=== PATIENT | female | born 1935 | race Caucasian/White ===

== ENCOUNTER 2018-02-22 10:08 | Inpatient (IN) ==
[2018-02-22 10:56] LABS: Immature Granulocytes % 0.4 %; Immature Granulocytes Absolute 0.03 #; NRBC # 0.05 10*3/uL
[2018-02-22 11:01] LABS: Basophils % 0.5 % (0.0-0.8); Eosinophils % 0.4 % (0.00-10.9); Hematocrit 23.2 VOL% (35.7-47.0); Lymphocytes # 1.6 10*3/uL (1.4-4.0); Lymphocytes % 20.9 % (21.3-54.2); Mean Corpuscular HGB Conc 34.5 GM/DL (32-36); Mean Corpuscular Hemoglobin 35 PG (27-34); Mean Corpuscular Volume 100.9 FL (87-102); Mean Platelet Volume 11.7 FL (9.6-12.0); Monocytes # 0.7 10*3/uL (0.11-0.8); Monocytes % 8.9 % (1.7-12.7); Neutrophils # 5.4 10*3/uL (1.4-7.4); Neutrophils % 68.9 % (38.7-73.9); Platelet Count 145 T/CUMM (130-400); Red Cell Distribution Width 15.8 % (9.3-17.3); White Blood Count 7.8 T/CUMM (4-12)
[2018-02-22 11:10] LABS: INR 1.1; PT Patient Result 11.4 SECS; Partial Thromboplastin Time 28.9 SECS (0-40)
[2018-02-22 11:24] LABS: Alanine Aminotransferase 103 U/L (13-56); Albumin 3.3 G/DL (3.4-5.0); Alkaline Phosphatase 137 U/L (45-117); Aspartate Amino Transferase 61 U/L (0-37); Blood Urea Nitrogen 18 MG/DL (7-18); Calcium 8.8 MG/DL (8.5-10.1); Glucose 99 MG/DL (74-106); Osmolality,Calculated 261.8 MOS/KG (273-304); Potassium 4.6 MMOL/L (3.5-5.1); Sodium 130 MMOL/L (136-145); Total Protein 7.4 G/DL (6.4-8.3); Troponin I Only < 0.015 NG/ML (0.00-0.045)
[2018-02-22] MEDS ORDERED: FUROSEMIDE 40 MG/4 ML VIAL IV STA (11:54)
[2018-02-22] MEDS: DILTIAZEM INJ 100 MG in SODIUM CHLORIDE 0.9% 100 ML IV SCH (12:12)
[2018-02-22] MEDS ORDERED: ACETAMINOPHEN 325 MG TABLET PO PRN (12:59)
[2018-02-22] MEDS ORDERED: ONDANSETRON 4 MG/2 ML VIAL IV PRN (12:59)
[2018-02-22] MEDS ORDERED: METOPROLOL SUCCINATE XL 25 MG TABLET PO SCH (13:00)
[2018-02-22] MEDS ORDERED: ASPIRIN EC 325 MG TABLET PO SCH (13:30)
[2018-02-22] MEDS ORDERED: SODIUM CHLORIDE 0.9% 1,000 ML IV PRN (13:59)
[2018-02-22] MEDS: GABAPENTIN 600 MG TABLET PO SCH ×2 (15:58→20:49)
[2018-02-22] MEDS: hydrALAZINE 25 MG TABLET PO SCH ×2 (15:58→20:48)
[2018-02-22] MEDS: ASCORBIC ACID 500 MG TABLET PO SCH (15:59)
[2018-02-22] MEDS: ASPIRIN EC 81 MG TABLET PO SCH (16:53)
[2018-02-22] MEDS: FUROSEMIDE 20 MG/2 ML VIAL IV SCH (18:28)
[2018-02-22 19:59] LABS: Hematocrit 26.6 VOL% (35.7-47.0); Hemoglobin 9.1 GM/DL (12.0-16.0)
[2018-02-22] MEDS: METOPROLOL SUCCINATE XL 25 MG TABLET PO SCH (20:48)
[2018-02-22] MEDS: MAGNESIUM OXIDE 400 MG TABLET PO SCH (20:48)
[2018-02-22] MEDS: CIPROFLOXACIN 250 MG TABLET PO SCH (20:48)
[2018-02-22] MEDS: GABAPENTIN 300 MG CAPSULE PO SCH (20:56)
[2018-02-23] MEDS: DILTIAZEM INJ 100 MG in SODIUM CHLORIDE 0.9% 100 ML IV SCH ×2 (00:51→13:13)
[2018-02-23 06:01] LABS: Basophils # 0.1 10*3/uL (0.0-0.2); Basophils % 0.7 % (0.0-0.8); Eosinophils # 0.2 10*3/uL (0.0-0.87); Eosinophils % 2.2 % (0.00-10.9); Hematocrit 26.8 VOL% (35.7-47.0); Hemoglobin 9.3 GM/DL (12.0-16.0); Immature Granulocytes % 0.4 %; Immature Granulocytes Absolute 0.03 #; Lymphocytes # 2.1 10*3/uL (1.4-4.0); Lymphocytes % 30.9 % (21.3-54.2); Mean Corpuscular HGB Conc 34.7 GM/DL (32-36); Mean Corpuscular Hemoglobin 34 PG (27-34); Mean Corpuscular Volume 97.8 FL (87-102); Mean Platelet Volume 11.8 FL (9.6-12.0); Monocytes # 0.7 10*3/uL (0.11-0.8); Monocytes % 10.5 % (1.7-12.7); NRBC # 0.03 10*3/uL; Neutrophils # 3.7 10*3/uL (1.4-7.4); Neutrophils % 55.3 % (38.7-73.9); Platelet Count 112 T/CUMM (130-400); Red Blood Count 2.74 MC/CUMM (3.8-5.5); Red Cell Distribution Width 15.6 % (9.3-17.3); White Blood Count 6.7 T/CUMM (4-12)
[2018-02-23 06:26] LABS: % Iron Saturation 23.4 % (18-50); Ferritin 217.7 ng/ml (8-252)
[2018-02-23 06:34] LABS: Albumin 3.1 G/DL (3.4-5.0); Bilirubin,Direct 0.27 MG/DL (0.0-0.20); Bilirubin,Indirect 0.9 MG/DL (0.0-1.0); Bilirubin,Total 1.2 MG/DL (0.2-1.0); Total Protein 6.9 G/DL (6.4-8.3)
[2018-02-23 06:46] LABS: Folate > 24.0 NG/ML (5.4-24.0); Vitamin B12 > 2000 PG/ML (211-911)
[2018-02-23 07:02] LABS: Calcium 8.5 MG/DL (8.5-10.1); Osmolality,Calculated 270.1 MOS/KG (273-304); Potassium 3.7 MMOL/L (3.5-5.1)
[2018-02-23] MEDS: FUROSEMIDE 20 MG/2 ML VIAL IV SCH ×2 (09:09→15:08)
[2018-02-23] MEDS: GABAPENTIN 600 MG TABLET PO SCH ×3 (09:09→21:27)
[2018-02-23] MEDS: MAGNESIUM OXIDE 400 MG TABLET PO SCH ×2 (09:09→21:26)
[2018-02-23] MEDS: hydrALAZINE 25 MG TABLET PO SCH ×3 (09:09→21:26)
[2018-02-23] MEDS: CIPROFLOXACIN 250 MG TABLET PO SCH ×2 (09:09→21:27)
[2018-02-23] MEDS: ASCORBIC ACID 500 MG TABLET PO SCH ×2 (09:09→09:33)
[2018-02-23] MEDS: ASPIRIN EC 81 MG TABLET PO SCH (09:09)
[2018-02-23] MEDS: PANTOPRAZOLE 40 MG TABLET PO SCH (09:09)
[2018-02-23] MEDS: METOPROLOL SUCCINATE XL 25 MG TABLET PO SCH ×2 (09:10→21:26)
[2018-02-23] MEDS: GABAPENTIN 300 MG CAPSULE PO SCH ×2 (09:33→21:27)
[2018-02-24 08:51] LABS: Basophils % 0.4 % (0.0-0.8); Eosinophils # 0.2 10*3/uL (0.0-0.87); Eosinophils % 2.3 % (0.00-10.9); Hematocrit 28.5 VOL% (35.7-47.0); Hemoglobin 10.1 GM/DL (12.0-16.0); Immature Granulocytes % 0.3 %; Immature Granulocytes Absolute 0.02 #; Lymphocytes % 28.9 % (21.3-54.2); Mean Corpuscular HGB Conc 35.4 GM/DL (32-36); Mean Corpuscular Hemoglobin 35 PG (27-34); Mean Corpuscular Volume 97.9 FL (87-102); Mean Platelet Volume 11.7 FL (9.6-12.0); Monocytes # 0.8 10*3/uL (0.11-0.8); Monocytes % 10.8 % (1.7-12.7); Neutrophils % 57.3 % (38.7-73.9); Platelet Count 129 T/CUMM (130-400); Red Blood Count 2.91 MC/CUMM (3.8-5.5); Red Cell Distribution Width 15.4 % (9.3-17.3)
[2018-02-24 09:06] LABS: Calcium 8.3 MG/DL (8.5-10.1); Osmolality,Calculated 264.5 MOS/KG (273-304); Potassium 3.4 MMOL/L (3.5-5.1)
[2018-02-24 09:08] VITALS: BP 116/68
[2018-02-24] MEDS: ASCORBIC ACID 500 MG TABLET PO SCH ×2 (09:18→09:38)
[2018-02-24] MEDS: FUROSEMIDE 20 MG/2 ML VIAL IV SCH (09:18)
[2018-02-24] MEDS: MAGNESIUM OXIDE 400 MG TABLET PO SCH (09:19)
[2018-02-24] MEDS: METOPROLOL SUCCINATE XL 25 MG TABLET PO SCH (09:19)
[2018-02-24] MEDS: hydrALAZINE 25 MG TABLET PO SCH (09:19)
[2018-02-24] MEDS: PANTOPRAZOLE 40 MG TABLET PO SCH (09:19)
[2018-02-24] MEDS: CIPROFLOXACIN 250 MG TABLET PO SCH (09:19)
[2018-02-24] MEDS: ASPIRIN EC 81 MG TABLET PO SCH (09:19)
[2018-02-24] MEDS: GABAPENTIN 600 MG TABLET PO SCH (09:19)
[2018-02-24] MEDS: GABAPENTIN 300 MG CAPSULE PO SCH (09:38)
[2018-02-24] MEDS ORDERED: POTASSIUM CHLORIDE 20 MEQ TABLET PO ONE (10:22)
== END 2018-02-24 11:51 | disposition home or self-care (01) | DRG 308 ==
LOC: N.ED 10:08 → N.EDINP 13:18 → SUATTDRO 13:18 → N.TELES 14:32
PROVIDERS: ADMIT Family Medicine

== ENCOUNTER 2019-07-16 20:12 | Inpatient (IN) ==
[2019-07-16] MEDS ORDERED: SODIUM CHLORIDE 0.9% 500 ML IV STA (20:34)
[2019-07-16] MEDS ORDERED: ALBUTEROL/IPRATROPIUM 3 ML NEB RESP TX STA (20:34)
[2019-07-16 20:42] LABS: Basophils % 0.2 % (0.0-0.8); Eosinophils % 0.1 % (0.00-10.9); Hematocrit 31.3 VOL% (35.7-47.0); Hemoglobin 10.2 GM/DL (12.0-16.0); Immature Granulocytes % 2.2 %; Immature Granulocytes Absolute 0.39 #; Lymphocytes # 1.2 10*3/uL (1.4-4.0); Lymphocytes % 6.5 % (21.3-54.2); Mean Corpuscular HGB Conc 32.6 GM/DL (32-36); Mean Corpuscular Volume 96.6 FL (87-102); Mean Platelet Volume 10.6 FL (9.6-12.0); Monocytes % 7.5 % (1.7-12.7); NRBC # 0.03 10*3/uL; Neutrophils % 83.5 % (38.7-73.9); Platelet Count 235 T/CUMM (130-400); Red Blood Count 3.24 MC/CUMM (3.8-5.5); Red Cell Distribution Width 15.1 % (9.3-17.3); White Blood Count 17.7 T/CUMM (4-12)
[2019-07-16 20:49] LABS: INR 0.9; PT Patient Result 9.4 SECS (9.6-12.2)
[2019-07-16 21:13] LABS: Alanine Aminotransferase 14 U/L (13-56); Albumin 2.1 G/DL (3.4-5.0); Alkaline Phosphatase 82 U/L (45-117); Amylase 31 U/L (25-115); Aspartate Amino Transferase 39 U/L (0-37); Bilirubin,Total < 0.39 MG/DL (0.2-1.0); Blood Urea Nitrogen 74 MG/DL (7-18); Estimated Glom Filtration Rate 11 ML/MIN; Glucose 100 MG/DL (74-106); Osmolality,Calculated 281.8 MOS/KG (273-304); Total Protein 6.8 G/DL (6.4-8.3); Troponin I 0.025 NG/ML (0.00-0.045)
[2019-07-16 21:23] LABS: Apearance,Urine CLOUDY (Clear); Bilirubin,Urine Negative (Negative); Blood, Urine Negative (Negative); Glucose,Urine (UA) Negative (Negative); Granular Casts,Urine 4 /LPF (0-1); Hyaline Casts,Urine 4 /LPF (0-3); Ketones,Urine Negative (Negative); Nitrite,Urine Negative (Negative); Protein,Urine 100 MG/DL; RBC,Urine 2 /HPF (0-4); Renal Epithelial Cells,Urine Occasional /HPF (<1); Squamous Epithelial Cell,Urine Occasional /HPF (0-10); Urine Color Yellow (Yellow); Urine Specific Gravity 1.015 (1.001-1.035); Urine Urobilinogen < 2.0 EU/DL (0.2-1.0); WBC,Urine 24 /HPF (0-6)
[2019-07-16] MEDS ORDERED: VANCOMYCIN INJ 1,000 MG in SODIUM CHLORIDE 0.9% 250 ML IV STA (21:37)
[2019-07-16] MEDS ORDERED: SODIUM CHLORIDE 0.9% 1,000 ML IV STA (21:37)
[2019-07-17] MEDS ORDERED: ONDANSETRON 4 MG/2 ML VIAL IV PRN (00:52)
[2019-07-17] MEDS ORDERED: SKIN HEALING OINT (AQUAPHOR) 50 GM TUBE TOP PRN (01:03)
[2019-07-17] MEDS: SODIUM CHLORIDE 0.9% 1,000 ML IV SCH ×2 (01:49→20:19)
[2019-07-17] MEDS: cefTRIAXone 1,000 MG in SYRINGE 1 EACH IV SCH (01:50)
[2019-07-17] MEDS: ENOXAPARIN 30 MG/0.3 ML SYRINGE SUBCUT SCH (01:50)
[2019-07-17 07:22] LABS: Basophils % 0.1 % (0.0-0.8); Eosinophils % 0.1 % (0.00-10.9); Hematocrit 25.8 VOL% (35.7-47.0); Hemoglobin 8.3 GM/DL (12.0-16.0); Immature Granulocytes % 2.1 %; Immature Granulocytes Absolute 0.32 #; Lymphocytes # 0.9 10*3/uL (1.4-4.0); Mean Corpuscular HGB Conc 32.2 GM/DL (32-36); Mean Corpuscular Volume 98.5 FL (87-102); Mean Platelet Volume 10.8 FL (9.6-12.0); Monocytes % 8.9 % (1.7-12.7); Neutrophils % 82.8 % (38.7-73.9); Red Blood Count 2.62 MC/CUMM (3.8-5.5); Red Cell Distribution Width 15.2 % (9.3-17.3); White Blood Count 15.1 T/CUMM (4-12)
[2019-07-17 07:33] LABS: Platelet Count 177 T/CUMM (130-400)
[2019-07-17 07:45] LABS: Band Neutrophils 4 % (0-10); Hypochromasia 1+; Lymphocytes 2 % (20-55); Ovalocytes Slight; Platelet Estimate Adequate; Segmented Neutrophils 89 % (50-85); Total Cells Counted 100
[2019-07-17] MEDS: PANTOPRAZOLE 40 MG TABLET PO SCH (08:50)
[2019-07-17 09:03] LABS: Alanine Aminotransferase 11 U/L (13-56); Albumin 1.9 G/DL (3.4-5.0); Alkaline Phosphatase 82 U/L (45-117); Aspartate Amino Transferase 26 U/L (0-37); Bilirubin,Total < 0.39 MG/DL (0.2-1.0); Blood Urea Nitrogen 71 MG/DL (7-18); Calcium 7.6 MG/DL (8.5-10.1); Estimated Glom Filtration Rate 11 ML/MIN; Glucose 90 MG/DL (74-106); Osmolality,Calculated 288.2 MOS/KG (273-304); Total Protein 6.2 G/DL (6.4-8.3)
[2019-07-17] MEDS ORDERED: Mirabegron [Myrbetriq] 25 MG PO SCH (12:15)
[2019-07-17] MEDS: ESCITALOPRAM 10 MG TABLET PO SCH (12:56)
[2019-07-17] MEDS: GABAPENTIN 300 MG CAPSULE PO SCH ×2 (12:56→20:19)
[2019-07-17] MEDS: MAGNESIUM OXIDE 400 MG TABLET PO SCH ×2 (12:57→20:19)
[2019-07-17] MEDS: ASPIRIN EC 81 MG TABLET PO SCH (12:57)
[2019-07-17] MEDS: METOPROLOL SUCCINATE XL 25 MG TABLET PO SCH (12:59)
[2019-07-17] MEDS: POTASSIUM CHLORIDE 20 MEQ TABLET PO PRN ×4 (12:59→20:19)
[2019-07-17] MEDS: DIGOXIN 0.125 MG TABLET PO SCH (13:01)
[2019-07-17] MEDS: DONEPEZIL 5 MG TABLET PO SCH (20:19)
[2019-07-18] MEDS: cefTRIAXone 1,000 MG in SYRINGE 1 EACH IV SCH (01:04)
[2019-07-18 07:41] LABS: Calcium 8.1 MG/DL (8.5-10.1); Osmolality,Calculated 291.8 MOS/KG (273-304)
[2019-07-18] MEDS: ENOXAPARIN 30 MG/0.3 ML SYRINGE SUBCUT SCH (10:14)
[2019-07-18] MEDS: ESCITALOPRAM 10 MG TABLET PO SCH (10:15)
[2019-07-18] MEDS: GABAPENTIN 300 MG CAPSULE PO SCH ×2 (10:15→21:53)
[2019-07-18] MEDS: DIGOXIN 0.125 MG TABLET PO SCH (10:15)
[2019-07-18] MEDS: METOPROLOL SUCCINATE XL 25 MG TABLET PO SCH (10:15)
[2019-07-18] MEDS: MAGNESIUM OXIDE 400 MG TABLET PO SCH ×2 (10:16→21:53)
[2019-07-18] MEDS: ASPIRIN EC 81 MG TABLET PO SCH (10:16)
[2019-07-18] MEDS: PANTOPRAZOLE 40 MG TABLET PO SCH (10:16)
[2019-07-18] MEDS: SODIUM CHLORIDE 0.9% 1,000 ML IV SCH (18:11)
[2019-07-18] MEDS: DONEPEZIL 5 MG TABLET PO SCH (21:53)
[2019-07-18] MEDS: OXYBUTYNIN 5 MG TABLET PO SCH (21:53)
[2019-07-18] MEDS: DESITIN 4OZ/NYSTATIN 15 GRAM MIXTURE PASTE TOP SCH (21:54)
[2019-07-19] MEDS: cefTRIAXone 1,000 MG in SYRINGE 1 EACH IV SCH (01:10)
[2019-07-19 05:39] LABS: Basophils % 0.2 % (0.0-0.8); Eosinophils # 0.1 10*3/uL (0.0-0.87); Eosinophils % 0.4 % (0.00-10.9); Hematocrit 27.5 VOL% (35.7-47.0); Hemoglobin 8.8 GM/DL (12.0-16.0); Immature Granulocytes % 1.9 %; Immature Granulocytes Absolute 0.45 #; Lymphocytes # 1.1 10*3/uL (1.4-4.0); Lymphocytes % 4.7 % (21.3-54.2); Mean Corpuscular Volume 98.6 FL (87-102); Mean Platelet Volume 11.2 FL (9.6-12.0); Monocytes % 6.4 % (1.7-12.7); Neutrophils % 86.4 % (38.7-73.9); Platelet Count 203 T/CUMM (130-400); Red Blood Count 2.79 MC/CUMM (3.8-5.5); Red Cell Distribution Width 15.7 % (9.3-17.3); White Blood Count 24.1 T/CUMM (4-12)
[2019-07-19 06:03] LABS: Band Neutrophils 7 % (0-10); Lymphocytes 5 % (20-55); Segmented Neutrophils 84 % (50-85); Total Cells Counted 100
[2019-07-19 06:04] LABS: Hypochromasia 1+; Microcytosis Slight; Platelet Estimate Normal
[2019-07-19 06:06] LABS: Calcium 7.9 MG/DL (8.5-10.1); Osmolality,Calculated 298.5 MOS/KG (273-304)
[2019-07-19] MEDS: GABAPENTIN 300 MG CAPSULE PO SCH ×2 (08:42→20:10)
[2019-07-19] MEDS: METOPROLOL SUCCINATE XL 25 MG TABLET PO SCH (08:42)
[2019-07-19] MEDS: ASPIRIN EC 81 MG TABLET PO SCH (08:42)
[2019-07-19] MEDS: ESCITALOPRAM 10 MG TABLET PO SCH (08:42)
[2019-07-19] MEDS: MAGNESIUM OXIDE 400 MG TABLET PO SCH ×2 (08:43→20:10)
[2019-07-19] MEDS: ENOXAPARIN 30 MG/0.3 ML SYRINGE SUBCUT SCH (08:43)
[2019-07-19] MEDS: PANTOPRAZOLE 40 MG TABLET PO SCH (08:43)
[2019-07-19] MEDS: OXYBUTYNIN 5 MG TABLET PO SCH ×2 (08:43→20:10)
[2019-07-19] MEDS: DIGOXIN 0.125 MG TABLET PO SCH (08:53)
[2019-07-19] MEDS: DESITIN 4OZ/NYSTATIN 15 GRAM MIXTURE PASTE TOP SCH ×2 (09:52→20:10)
[2019-07-19] MEDS: POTASSIUM CHLORIDE 20 MEQ TABLET PO PRN ×4 (09:57→15:13)
[2019-07-19] MEDS: SODIUM CHLORIDE 0.9% 1,000 ML IV SCH ×2 (11:40→12:28)
[2019-07-19] MEDS: FLUCONAZOLE INJ 100 MG in IV BAG 1 EACH IV SCH (11:40)
[2019-07-19] MEDS: ERTAPENEM 1,000 MG in SODIUM CHLORIDE 0.9% 100 ML IV SCH (15:13)
[2019-07-19] MEDS: ACETAMINOPHEN 325 MG TABLET PO PRN (15:13)
[2019-07-20 06:10] LABS: Basophils # 0.1 10*3/uL (0.0-0.2); Basophils % 0.2 % (0.0-0.8); Eosinophils # 0.1 10*3/uL (0.0-0.87); Eosinophils % 0.5 % (0.00-10.9); Hematocrit 28.6 VOL% (35.7-47.0); Hemoglobin 9.3 GM/DL (12.0-16.0); Immature Granulocytes % 1.2 %; Immature Granulocytes Absolute 0.37 #; Lymphocytes # 1.3 10*3/uL (1.4-4.0); Lymphocytes % 4.4 % (21.3-54.2); Mean Corpuscular HGB Conc 32.5 GM/DL (32-36); Mean Corpuscular Volume 97.6 FL (87-102); Mean Platelet Volume 11.2 FL (9.6-12.0); Monocytes % 4.9 % (1.7-12.7); NRBC # 0.02 10*3/uL; Neutrophils % 88.8 % (38.7-73.9); Platelet Count 237 T/CUMM (130-400); Red Blood Count 2.93 MC/CUMM (3.8-5.5); Red Cell Distribution Width 15.8 % (9.3-17.3)
[2019-07-20 06:33] LABS: Calcium 7.9 MG/DL (8.5-10.1); Osmolality,Calculated 301.1 MOS/KG (273-304)
[2019-07-20 06:44] LABS: Band Neutrophils 4 % (0-10); Eosinophils 1 % (0-10); Lymphocytes 4 % (20-55); Segmented Neutrophils 90 % (50-85); Total Cells Counted 100
[2019-07-20 06:45] LABS: Anisocytosis 1+; Ovalocytes 1+; Platelet Estimate Normal
[2019-07-20] MEDS: POTASSIUM CHLORIDE 20 MEQ TABLET PO PRN (08:27)
[2019-07-20] MEDS: MAGNESIUM OXIDE 400 MG TABLET PO SCH ×2 (08:28→21:25)
[2019-07-20] MEDS: OXYBUTYNIN 5 MG TABLET PO SCH ×2 (08:28→21:25)
[2019-07-20] MEDS: GABAPENTIN 300 MG CAPSULE PO SCH ×2 (08:28→21:25)
[2019-07-20] MEDS: DESITIN 4OZ/NYSTATIN 15 GRAM MIXTURE PASTE TOP SCH ×2 (08:28→21:25)
[2019-07-20] MEDS: DIGOXIN 0.125 MG TABLET PO SCH (08:28)
[2019-07-20] MEDS: ASPIRIN EC 81 MG TABLET PO SCH (08:28)
[2019-07-20] MEDS: ENOXAPARIN 30 MG/0.3 ML SYRINGE SUBCUT SCH (08:28)
[2019-07-20] MEDS: SODIUM CHLORIDE 0.9% 1,000 ML IV SCH (08:29)
[2019-07-20] MEDS: METOPROLOL SUCCINATE XL 25 MG TABLET PO SCH (08:30)
[2019-07-20] MEDS: PANTOPRAZOLE 40 MG TABLET PO SCH (08:30)
[2019-07-20] MEDS: FLUCONAZOLE INJ 100 MG in IV BAG 1 EACH IV SCH (10:21)
[2019-07-20] MEDS ORDERED: PROPOFOL 200 MG/20 ML VIAL IV ONE (15:22)
[2019-07-20] MEDS ORDERED: DEXAMETHASONE 4 MG/1 ML VIAL ONE ×2 (15:23)
[2019-07-20] MEDS ORDERED: PHENYLEPHRINE DRIP 20 MG/250 ML PREMIX IV ONE (15:23)
[2019-07-20] MEDS ORDERED: SEVOFLURANE 1 UNIT/15 MINUTE INH ONE (15:23)
[2019-07-20] MEDS ORDERED: LIDOCAINE 2% 5 ML VIAL ONE (15:23)
[2019-07-20] MEDS ORDERED: PHENYLEPHRINE 1 MG/10 ML SYRINGE IV ONE (15:23)
[2019-07-20] MEDS ORDERED: ONDANSETRON 4 MG/2 ML VIAL ONE (15:23)
[2019-07-20] MEDS ORDERED: TAMSULOSIN 0.4 MG CAPSULE PO PRN (15:38)
[2019-07-20] MEDS: ERTAPENEM 1,000 MG in SODIUM CHLORIDE 0.9% 100 ML IV SCH (16:08)
[2019-07-21 05:51] LABS: Basophils # 0.1 10*3/uL (0.0-0.2); Basophils % 0.2 % (0.0-0.8); Hematocrit 27.8 VOL% (35.7-47.0); Hemoglobin 8.7 GM/DL (12.0-16.0); Immature Granulocytes % 1.7 %; Immature Granulocytes Absolute 0.49 #; Lymphocytes # 1.4 10*3/uL (1.4-4.0); Lymphocytes % 4.9 % (21.3-54.2); Mean Corpuscular HGB Conc 31.3 GM/DL (32-36); Mean Corpuscular Volume 99.3 FL (87-102); Mean Platelet Volume 11.1 FL (9.6-12.0); Monocytes % 2.5 % (1.7-12.7); Neutrophils % 90.7 % (38.7-73.9); Platelet Count 233 T/CUMM (130-400); Red Cell Distribution Width 16.1 % (9.3-17.3)
[2019-07-21] MEDS: SODIUM CHLORIDE 0.9% 1,000 ML IV SCH ×2 (05:51→22:17)
[2019-07-21 06:17] LABS: Band Neutrophils 2 % (0-10); Segmented Neutrophils 97 % (50-85); Total Cells Counted 100
[2019-07-21 06:19] LABS: Anisocytosis 1+; Platelet Estimate Normal
[2019-07-21 06:29] LABS: Calcium 7.6 MG/DL (8.5-10.1); Osmolality,Calculated 307.7 MOS/KG (273-304)
[2019-07-21] MEDS: DIGOXIN 0.125 MG TABLET PO SCH ×2 (07:55→08:01)
[2019-07-21] MEDS: PANTOPRAZOLE 40 MG TABLET PO SCH ×2 (07:55→08:01)
[2019-07-21] MEDS: ASPIRIN EC 81 MG TABLET PO SCH ×2 (07:55→08:00)
[2019-07-21] MEDS: MAGNESIUM OXIDE 400 MG TABLET PO SCH ×3 (07:56→20:24)
[2019-07-21] MEDS: GABAPENTIN 300 MG CAPSULE PO SCH ×3 (07:56→20:23)
[2019-07-21] MEDS: OXYBUTYNIN 5 MG TABLET PO SCH ×3 (07:56→20:24)
[2019-07-21] MEDS: METOPROLOL SUCCINATE XL 25 MG TABLET PO SCH ×2 (07:56→08:02)
[2019-07-21] MEDS: ENOXAPARIN 30 MG/0.3 ML SYRINGE SUBCUT SCH ×2 (07:57→08:01)
[2019-07-21] MEDS: DESITIN 4OZ/NYSTATIN 15 GRAM MIXTURE PASTE TOP SCH ×2 (07:59→20:25)
[2019-07-21] MEDS: FLUCONAZOLE INJ 100 MG in IV BAG 1 EACH IV SCH (11:49)
[2019-07-21] MEDS: NYSTATIN POWDER 15 GM BOTTLE TOP PRN ×2 (11:50→20:25)
[2019-07-21] MEDS: ERTAPENEM 1,000 MG in SODIUM CHLORIDE 0.9% 100 ML IV SCH (14:29)
[2019-07-22] MEDS: SODIUM CHLORIDE 0.9% 1,000 ML IV SCH ×2 (01:21→20:30)
[2019-07-22 04:34] LABS: Basophils % 0.2 % (0.0-0.8); Eosinophils % 0.1 % (0.00-10.9); Hematocrit 27.4 VOL% (35.7-47.0); Hemoglobin 8.8 GM/DL (12.0-16.0); Immature Granulocytes % 1.2 %; Immature Granulocytes Absolute 0.32 #; Lymphocytes # 2.3 10*3/uL (1.4-4.0); Lymphocytes % 8.9 % (21.3-54.2); Mean Corpuscular HGB Conc 32.1 GM/DL (32-36); Mean Corpuscular Volume 98.2 FL (87-102); Mean Platelet Volume 11.1 FL (9.6-12.0); Monocytes % 5.5 % (1.7-12.7); Neutrophils % 84.1 % (38.7-73.9); Platelet Count 238 T/CUMM (130-400); Red Blood Count 2.79 MC/CUMM (3.8-5.5); Red Cell Distribution Width 16.2 % (9.3-17.3); White Blood Count 25.7 T/CUMM (4-12)
[2019-07-22 04:58] LABS: Band Neutrophils 1 % (0-10); Burr Cells Slight; Hypochromasia 1+; Lymphocytes 6 % (20-55); Ovalocytes Slight; Platelet Estimate Adequate; Segmented Neutrophils 89 % (50-85); Total Cells Counted 100
[2019-07-22 05:02] LABS: Calcium 7.7 MG/DL (8.5-10.1); Osmolality,Calculated 315.4 MOS/KG (273-304)
[2019-07-22] MEDS: ASPIRIN EC 81 MG TABLET PO SCH (09:11)
[2019-07-22] MEDS: ENOXAPARIN 30 MG/0.3 ML SYRINGE SUBCUT SCH (09:11)
[2019-07-22] MEDS: OXYBUTYNIN 5 MG TABLET PO SCH ×2 (09:11→22:18)
[2019-07-22] MEDS: ESCITALOPRAM 10 MG TABLET PO SCH (09:11)
[2019-07-22] MEDS: METOPROLOL SUCCINATE XL 25 MG TABLET PO SCH (09:12)
[2019-07-22] MEDS: MAGNESIUM OXIDE 400 MG TABLET PO SCH ×2 (09:12→22:18)
[2019-07-22] MEDS: DIGOXIN 0.125 MG TABLET PO SCH (09:12)
[2019-07-22] MEDS: PANTOPRAZOLE 40 MG TABLET PO SCH (09:13)
[2019-07-22] MEDS: GABAPENTIN 300 MG CAPSULE PO SCH ×2 (09:13→22:18)
[2019-07-22] MEDS: DESITIN 4OZ/NYSTATIN 15 GRAM MIXTURE PASTE TOP SCH ×2 (09:19→22:17)
[2019-07-22] MEDS: ERTAPENEM 1,000 MG in SODIUM CHLORIDE 0.9% 100 ML IV SCH (14:56)
[2019-07-22] MEDS ORDERED: MEGESTROL 400 MG/10 ML UDCUP PO SCH (21:00)
[2019-07-22] MEDS: MENTHOL/ZINC OXIDE OINT 71 GM JAR TOP SCH (22:00)
[2019-07-22] MEDS: DONEPEZIL 5 MG TABLET PO SCH (22:19)
[2019-07-23 08:48] LABS: Basophils # 0.1 10*3/uL (0.0-0.2); Basophils % 0.2 % (0.0-0.8); Eosinophils # 0.1 10*3/uL (0.0-0.87); Eosinophils % 0.3 % (0.00-10.9); Hemoglobin 8.9 GM/DL (12.0-16.0); Immature Granulocytes % 1.1 %; Lymphocytes # 2.5 10*3/uL (1.4-4.0); Mean Corpuscular HGB Conc 31.8 GM/DL (32-36); Mean Corpuscular Volume 97.9 FL (87-102); Mean Platelet Volume 11.4 FL (9.6-12.0); Monocytes % 5.8 % (1.7-12.7); Neutrophils % 83.6 % (38.7-73.9); Platelet Count 240 T/CUMM (130-400); Red Blood Count 2.86 MC/CUMM (3.8-5.5); Red Cell Distribution Width 16.4 % (9.3-17.3); White Blood Count 27.8 T/CUMM (4-12)
[2019-07-23 09:05] LABS: Calcium 7.6 MG/DL (8.5-10.1); Osmolality,Calculated 322.7 MOS/KG (273-304)
[2019-07-23 09:16] LABS: Lymphocytes 4 % (20-55); Segmented Neutrophils 93 % (50-85); Total Cells Counted 100
[2019-07-23 09:17] LABS: Hypochromasia 1+; Platelet Estimate Adequate
[2019-07-23] MEDS: MEGESTROL 400 MG/10 ML UDCUP PO SCH (10:13)
[2019-07-23] MEDS: ENOXAPARIN 30 MG/0.3 ML SYRINGE SUBCUT SCH (10:13)
[2019-07-23] MEDS: ESCITALOPRAM 10 MG TABLET PO SCH (10:14)
[2019-07-23] MEDS: PANTOPRAZOLE 40 MG TABLET PO SCH (10:14)
[2019-07-23] MEDS: OXYBUTYNIN 5 MG TABLET PO SCH ×2 (10:14→21:31)
[2019-07-23] MEDS: ASPIRIN EC 81 MG TABLET PO SCH (10:14)
[2019-07-23] MEDS: METOPROLOL SUCCINATE XL 25 MG TABLET PO SCH (10:14)
[2019-07-23] MEDS: MAGNESIUM OXIDE 400 MG TABLET PO SCH ×2 (10:14→21:31)
[2019-07-23] MEDS: GABAPENTIN 300 MG CAPSULE PO SCH ×2 (10:14→21:56)
[2019-07-23] MEDS: MENTHOL/ZINC OXIDE OINT 71 GM JAR TOP SCH ×2 (10:15→21:31)
[2019-07-23] MEDS: DIGOXIN 0.125 MG TABLET PO SCH (10:15)
[2019-07-23] MEDS: DESITIN 4OZ/NYSTATIN 15 GRAM MIXTURE PASTE TOP SCH ×2 (10:16→21:32)
[2019-07-23] MEDS: ERTAPENEM 1,000 MG in SODIUM CHLORIDE 0.9% 100 ML IV SCH (14:31)
[2019-07-23] MEDS: SODIUM CHLORIDE 0.9% 1,000 ML IV SCH (16:46)
[2019-07-23] MEDS: DONEPEZIL 5 MG TABLET PO SCH (21:31)
[2019-07-24] MEDS: MAGNESIUM OXIDE 400 MG TABLET PO SCH ×2 (08:32→21:31)
[2019-07-24] MEDS: ASPIRIN EC 81 MG TABLET PO SCH (08:32)
[2019-07-24] MEDS: DIGOXIN 0.125 MG TABLET PO SCH (08:32)
[2019-07-24] MEDS: PANTOPRAZOLE 40 MG TABLET PO SCH (08:33)
[2019-07-24] MEDS: GABAPENTIN 300 MG CAPSULE PO SCH ×2 (08:33→21:30)
[2019-07-24] MEDS: MEGESTROL 400 MG/10 ML UDCUP PO SCH (08:33)
[2019-07-24] MEDS: ESCITALOPRAM 10 MG TABLET PO SCH (08:33)
[2019-07-24] MEDS: METOPROLOL SUCCINATE XL 25 MG TABLET PO SCH (08:33)
[2019-07-24] MEDS: OXYBUTYNIN 5 MG TABLET PO SCH ×2 (08:33→21:31)
[2019-07-24] MEDS: ENOXAPARIN 30 MG/0.3 ML SYRINGE SUBCUT SCH (08:33)
[2019-07-24] MEDS: MENTHOL/ZINC OXIDE OINT 71 GM JAR TOP SCH ×2 (08:34→21:30)
[2019-07-24] MEDS: DESITIN 4OZ/NYSTATIN 15 GRAM MIXTURE PASTE TOP SCH ×2 (08:37→21:19)
[2019-07-24] MEDS: SODIUM CHLORIDE 0.45% 1,000 ML IV SCH (13:02)
[2019-07-24] MEDS: ERTAPENEM 1,000 MG in SODIUM CHLORIDE 0.9% 100 ML IV SCH (14:26)
[2019-07-24] MEDS: DONEPEZIL 5 MG TABLET PO SCH (21:31)
[2019-07-25] MEDS: SODIUM CHLORIDE 0.45% 1,000 ML IV SCH ×2 (02:00→16:10)
[2019-07-25 06:10] LABS: Basophils % 0.2 % (0.0-0.8); Eosinophils # 0.2 10*3/uL (0.0-0.87); Eosinophils % 0.8 % (0.00-10.9); Hematocrit 26.3 VOL% (35.7-47.0); Hemoglobin 8.3 GM/DL (12.0-16.0); Immature Granulocytes % 0.8 %; Immature Granulocytes Absolute 0.19 #; Lymphocytes # 1.9 10*3/uL (1.4-4.0); Lymphocytes % 7.9 % (21.3-54.2); Mean Corpuscular HGB Conc 31.6 GM/DL (32-36); Mean Corpuscular Volume 98.5 FL (87-102); Mean Platelet Volume 11.5 FL (9.6-12.0); Neutrophils % 85.3 % (38.7-73.9); Platelet Count 218 T/CUMM (130-400); Red Blood Count 2.67 MC/CUMM (3.8-5.5); Red Cell Distribution Width 16.3 % (9.3-17.3); White Blood Count 23.6 T/CUMM (4-12)
[2019-07-25 06:20] LABS: Calcium 7.2 MG/DL (8.5-10.1); Osmolality,Calculated 306.3 MOS/KG (273-304)
[2019-07-25 06:37] LABS: Burr Cells Slight; Eosinophils 2 % (0-10); Hypochromasia 1+; Lymphocytes 6 % (20-55); Ovalocytes Slight; Platelet Estimate Adequate; Segmented Neutrophils 90 % (50-85); Total Cells Counted 100
[2019-07-25] MEDS: GABAPENTIN 300 MG CAPSULE PO SCH ×2 (08:52→20:18)
[2019-07-25] MEDS: ESCITALOPRAM 10 MG TABLET PO SCH (08:52)
[2019-07-25] MEDS: POTASSIUM CHLORIDE 20 MEQ/15 ML UDCUP PER TUBE PRN ×3 (08:52→21:15)
[2019-07-25] MEDS: PANTOPRAZOLE 40 MG TABLET PO SCH (08:52)
[2019-07-25] MEDS: MEGESTROL 400 MG/10 ML UDCUP PO SCH (08:52)
[2019-07-25] MEDS: ENOXAPARIN 30 MG/0.3 ML SYRINGE SUBCUT SCH (08:52)
[2019-07-25] MEDS: ASPIRIN EC 81 MG TABLET PO SCH (08:53)
[2019-07-25] MEDS: MAGNESIUM OXIDE 400 MG TABLET PO SCH ×2 (08:53→20:18)
[2019-07-25] MEDS: OXYBUTYNIN 5 MG TABLET PO SCH ×2 (08:53→20:18)
[2019-07-25] MEDS: METOPROLOL SUCCINATE XL 25 MG TABLET PO SCH (08:53)
[2019-07-25] MEDS: DIGOXIN 0.125 MG TABLET PO SCH (08:53)
[2019-07-25] MEDS: DESITIN 4OZ/NYSTATIN 15 GRAM MIXTURE PASTE TOP SCH ×2 (09:01→20:18)
[2019-07-25] MEDS: MENTHOL/ZINC OXIDE OINT 71 GM JAR TOP SCH ×2 (09:02→20:19)
[2019-07-25] MEDS: ERTAPENEM 1,000 MG in SODIUM CHLORIDE 0.9% 100 ML IV SCH (17:05)
[2019-07-25] MEDS: DONEPEZIL 5 MG TABLET PO SCH (20:18)
[2019-07-26] MEDS: POTASSIUM CHLORIDE 20 MEQ/15 ML UDCUP PER TUBE PRN (03:30)
[2019-07-26] MEDS: SODIUM CHLORIDE 0.45% 1,000 ML IV SCH ×2 (05:19→21:53)
[2019-07-26 05:50] LABS: Basophils % 0.2 % (0.0-0.8); Eosinophils # 0.3 10*3/uL (0.0-0.87); Eosinophils % 1.4 % (0.00-10.9); Hematocrit 25.7 VOL% (35.7-47.0); Hemoglobin 8.3 GM/DL (12.0-16.0); Immature Granulocytes % 0.9 %; Immature Granulocytes Absolute 0.17 #; Lymphocytes # 2.5 10*3/uL (1.4-4.0); Lymphocytes % 12.6 % (21.3-54.2); Mean Corpuscular HGB Conc 32.3 GM/DL (32-36); Mean Corpuscular Volume 97.3 FL (87-102); Mean Platelet Volume 12.1 FL (9.6-12.0); Monocytes % 5.9 % (1.7-12.7); Platelet Count 219 T/CUMM (130-400); Red Blood Count 2.64 MC/CUMM (3.8-5.5); Red Cell Distribution Width 16.3 % (9.3-17.3); White Blood Count 19.4 T/CUMM (4-12)
[2019-07-26 06:05] LABS: Calcium 7.1 MG/DL (8.5-10.1)
[2019-07-26] MEDS: ESCITALOPRAM 10 MG TABLET PO SCH (10:28)
[2019-07-26] MEDS: MEGESTROL 400 MG/10 ML UDCUP PO SCH (10:28)
[2019-07-26] MEDS: PANTOPRAZOLE 40 MG TABLET PO SCH (10:29)
[2019-07-26] MEDS: OXYBUTYNIN 5 MG TABLET PO SCH ×2 (10:29→21:53)
[2019-07-26] MEDS: GABAPENTIN 300 MG CAPSULE PO SCH ×2 (10:29→21:53)
[2019-07-26] MEDS: ENOXAPARIN 30 MG/0.3 ML SYRINGE SUBCUT SCH (10:29)
[2019-07-26] MEDS: MENTHOL/ZINC OXIDE OINT 71 GM JAR TOP SCH ×2 (10:29→21:54)
[2019-07-26] MEDS: DIGOXIN 0.125 MG TABLET PO SCH (10:29)
[2019-07-26] MEDS: ASPIRIN EC 81 MG TABLET PO SCH (10:29)
[2019-07-26] MEDS: METOPROLOL SUCCINATE XL 25 MG TABLET PO SCH (10:29)
[2019-07-26] MEDS: MAGNESIUM OXIDE 400 MG TABLET PO SCH ×2 (10:29→21:53)
[2019-07-26] MEDS: DESITIN 4OZ/NYSTATIN 15 GRAM MIXTURE PASTE TOP SCH ×2 (10:30→21:54)
[2019-07-26] MEDS: ERTAPENEM 1,000 MG in SODIUM CHLORIDE 0.9% 100 ML IV SCH (16:07)
[2019-07-26] MEDS: DONEPEZIL 5 MG TABLET PO SCH (21:53)
[2019-07-27 06:17] LABS: Calcium 7.1 MG/DL (8.5-10.1); Osmolality,Calculated 289.1 MOS/KG (273-304)
[2019-07-27 06:41] LABS: Basophils # 0.1 10*3/uL (0.0-0.2); Basophils % 0.3 % (0.0-0.8); Eosinophils # 0.3 10*3/uL (0.0-0.87); Eosinophils % 1.7 % (0.00-10.9); Hematocrit 26.3 VOL% (35.7-47.0); Hemoglobin 8.2 GM/DL (12.0-16.0); Immature Granulocytes % 0.6 %; Immature Granulocytes Absolute 0.09 #; Lymphocytes # 1.9 10*3/uL (1.4-4.0); Lymphocytes % 12.4 % (21.3-54.2); Mean Corpuscular HGB Conc 31.2 GM/DL (32-36); Mean Corpuscular Volume 98.5 FL (87-102); Mean Platelet Volume 11.8 FL (9.6-12.0); Monocytes % 6.6 % (1.7-12.7); Neutrophils % 78.4 % (38.7-73.9); Platelet Count 196 T/CUMM (130-400); Red Blood Count 2.67 MC/CUMM (3.8-5.5); White Blood Count 15.4 T/CUMM (4-12)
[2019-07-27] MEDS: ACETAMINOPHEN 325 MG TABLET PO PRN ×2 (09:57→22:15)
[2019-07-27] MEDS: POTASSIUM CHLORIDE 20 MEQ TABLET PO PRN ×4 (09:58→17:03)
[2019-07-27] MEDS: DIGOXIN 0.125 MG TABLET PO SCH (10:08)
[2019-07-27] MEDS: DESITIN 4OZ/NYSTATIN 15 GRAM MIXTURE PASTE TOP SCH ×2 (10:08→22:16)
[2019-07-27] MEDS: METOPROLOL SUCCINATE XL 25 MG TABLET PO SCH (10:08)
[2019-07-27] MEDS: MEGESTROL 400 MG/10 ML UDCUP PO SCH (10:08)
[2019-07-27] MEDS: MAGNESIUM OXIDE 400 MG TABLET PO SCH ×2 (10:09→22:15)
[2019-07-27] MEDS: ESCITALOPRAM 10 MG TABLET PO SCH (10:09)
[2019-07-27] MEDS: PANTOPRAZOLE 40 MG TABLET PO SCH (10:09)
[2019-07-27] MEDS: OXYBUTYNIN 5 MG TABLET PO SCH ×2 (10:09→22:16)
[2019-07-27] MEDS: GABAPENTIN 300 MG CAPSULE PO SCH ×2 (10:10→22:16)
[2019-07-27] MEDS: ENOXAPARIN 30 MG/0.3 ML SYRINGE SUBCUT SCH (10:10)
[2019-07-27] MEDS: MENTHOL/ZINC OXIDE OINT 71 GM JAR TOP SCH ×2 (10:13→22:16)
[2019-07-27] MEDS: ASPIRIN EC 81 MG TABLET PO SCH (10:13)
[2019-07-27] MEDS: DONEPEZIL 5 MG TABLET PO SCH (22:16)
[2019-07-27] MEDS: SODIUM CHLORIDE 0.45% 1,000 ML IV SCH (22:18)
[2019-07-28 05:38] LABS: Calcium 7.5 MG/DL (8.5-10.1); Osmolality,Calculated 290.8 MOS/KG (273-304)
[2019-07-28] MEDS: ESCITALOPRAM 10 MG TABLET PO SCH (08:27)
[2019-07-28] MEDS: MEGESTROL 400 MG/10 ML UDCUP PO SCH (08:27)
[2019-07-28] MEDS: OXYBUTYNIN 5 MG TABLET PO SCH ×2 (08:29→20:34)
[2019-07-28] MEDS: MAGNESIUM OXIDE 400 MG TABLET PO SCH ×2 (08:29→20:33)
[2019-07-28] MEDS: DIGOXIN 0.125 MG TABLET PO SCH (08:29)
[2019-07-28] MEDS: PANTOPRAZOLE 40 MG TABLET PO SCH (08:30)
[2019-07-28] MEDS: GABAPENTIN 300 MG CAPSULE PO SCH ×2 (08:30→20:33)
[2019-07-28] MEDS: ENOXAPARIN 30 MG/0.3 ML SYRINGE SUBCUT SCH (08:30)
[2019-07-28] MEDS: METOPROLOL SUCCINATE XL 25 MG TABLET PO SCH (08:30)
[2019-07-28] MEDS: MENTHOL/ZINC OXIDE OINT 71 GM JAR TOP SCH ×2 (08:30→20:44)
[2019-07-28] MEDS: CHOLESTYRAMINE 4 GM PACK PO SCH ×2 (08:31→20:34)
[2019-07-28] MEDS: DESITIN 4OZ/NYSTATIN 15 GRAM MIXTURE PASTE TOP SCH ×2 (08:31→20:44)
[2019-07-28] MEDS: ASPIRIN EC 81 MG TABLET PO SCH (08:31)
[2019-07-28] MEDS: DONEPEZIL 5 MG TABLET PO SCH (20:34)
[2019-07-28] MEDS: SODIUM CHLORIDE 0.45% 1,000 ML IV SCH (21:32)
[2019-07-29 05:00] LABS: Basophils % 0.2 % (0.0-0.8); Eosinophils # 0.2 10*3/uL (0.0-0.87); Eosinophils % 1.5 % (0.00-10.9); Hematocrit 23.5 VOL% (35.7-47.0); Hemoglobin 7.6 GM/DL (12.0-16.0); Immature Granulocytes % 0.8 %; Immature Granulocytes Absolute 0.13 #; Lymphocytes # 2.2 10*3/uL (1.4-4.0); Lymphocytes % 13.4 % (21.3-54.2); Mean Corpuscular HGB Conc 32.3 GM/DL (32-36); Mean Corpuscular Volume 97.5 FL (87-102); Mean Platelet Volume 12.2 FL (9.6-12.0); Monocytes % 8.5 % (1.7-12.7); Neutrophils % 75.6 % (38.7-73.9); Platelet Count 212 T/CUMM (130-400); Red Blood Count 2.41 MC/CUMM (3.8-5.5); Red Cell Distribution Width 15.7 % (9.3-17.3); White Blood Count 16.5 T/CUMM (4-12)
[2019-07-29 05:14] LABS: Calcium 7.2 MG/DL (8.5-10.1); Osmolality,Calculated 285.1 MOS/KG (273-304)
[2019-07-29] MEDS: DIGOXIN 0.125 MG TABLET PO SCH (08:13)
[2019-07-29] MEDS: ASPIRIN EC 81 MG TABLET PO SCH (08:13)
[2019-07-29] MEDS: ESCITALOPRAM 10 MG TABLET PO SCH (08:13)
[2019-07-29] MEDS: MAGNESIUM OXIDE 400 MG TABLET PO SCH ×2 (08:15→20:40)
[2019-07-29] MEDS: OXYBUTYNIN 5 MG TABLET PO SCH ×2 (08:15→20:40)
[2019-07-29] MEDS: MENTHOL/ZINC OXIDE OINT 71 GM JAR TOP SCH ×2 (08:15→20:41)
[2019-07-29] MEDS: ENOXAPARIN 30 MG/0.3 ML SYRINGE SUBCUT SCH (08:15)
[2019-07-29] MEDS: MEGESTROL 400 MG/10 ML UDCUP PO SCH (08:16)
[2019-07-29] MEDS: METOPROLOL SUCCINATE XL 25 MG TABLET PO SCH (08:16)
[2019-07-29] MEDS: CHOLESTYRAMINE 4 GM PACK PO SCH ×2 (08:16→20:39)
[2019-07-29] MEDS: PANTOPRAZOLE 40 MG TABLET PO SCH (08:16)
[2019-07-29] MEDS: GABAPENTIN 300 MG CAPSULE PO SCH ×2 (08:16→20:40)
[2019-07-29] MEDS: ERTAPENEM 1,000 MG in SODIUM CHLORIDE 0.9% 100 ML IV SCH (08:17)
[2019-07-29] MEDS: DESITIN 4OZ/NYSTATIN 15 GRAM MIXTURE PASTE TOP SCH ×2 (08:17→20:40)
[2019-07-29] MEDS ORDERED: MAGNESIUM SULF RIDER 4 GM in PREMIX 1 EACH IV PRN (11:25)
[2019-07-29] MEDS ORDERED: MAGNESIUM SULF RIDER 2 GM in PREMIX 1 EACH IV PRN (11:25)
[2019-07-29] MEDS: SODIUM CHLORIDE 0.45% 1,000 ML IV SCH (13:25)
[2019-07-29] MEDS ORDERED: SODIUM CHLORIDE 0.9% 1,000 ML IV PRN (14:06)
[2019-07-29] MEDS: DONEPEZIL 5 MG TABLET PO SCH (20:40)
[2019-07-29 22:47] LABS: Hematocrit 30.3 VOL% (35.7-47.0)
[2019-07-29 22:49] LABS: Hemoglobin 9.8 GM/DL (12.0-16.0)
[2019-07-30 06:17] LABS: Basophils # 0.1 10*3/uL (0.0-0.2); Basophils % 0.5 % (0.0-0.8); Eosinophils # 0.1 10*3/uL (0.0-0.87); Eosinophils % 0.7 % (0.00-10.9); Hematocrit 34.4 VOL% (35.7-47.0); Hemoglobin 11.1 GM/DL (12.0-16.0); Immature Granulocytes % 0.5 %; Immature Granulocytes Absolute 0.08 #; Lymphocytes # 2.4 10*3/uL (1.4-4.0); Lymphocytes % 15.7 % (21.3-54.2); Mean Corpuscular HGB Conc 32.3 GM/DL (32-36); Mean Corpuscular Volume 95.6 FL (87-102); Monocytes % 8.1 % (1.7-12.7); Neutrophils % 74.5 % (38.7-73.9); Platelet Count 273 T/CUMM (130-400); Red Cell Distribution Width 15.2 % (9.3-17.3)
[2019-07-30 06:28] LABS: Calcium 7.8 MG/DL (8.5-10.1); Osmolality,Calculated 282.3 MOS/KG (273-304)
[2019-07-30] MEDS: ACETAMINOPHEN 325 MG TABLET PO PRN (09:28)
[2019-07-30] MEDS: ASPIRIN EC 81 MG TABLET PO SCH (09:28)
[2019-07-30] MEDS: MEGESTROL 400 MG/10 ML UDCUP PO SCH (09:29)
[2019-07-30] MEDS: ENOXAPARIN 30 MG/0.3 ML SYRINGE SUBCUT SCH (09:29)
[2019-07-30] MEDS: MAGNESIUM OXIDE 400 MG TABLET PO SCH (09:30)
[2019-07-30] MEDS: DIGOXIN 0.125 MG TABLET PO SCH (09:30)
[2019-07-30] MEDS: OXYBUTYNIN 5 MG TABLET PO SCH (09:30)
[2019-07-30] MEDS: CHOLESTYRAMINE 4 GM PACK PO SCH (09:30)
[2019-07-30] MEDS: PANTOPRAZOLE 40 MG TABLET PO SCH (09:30)
[2019-07-30] MEDS: GABAPENTIN 300 MG CAPSULE PO SCH (09:30)
[2019-07-30] MEDS: ESCITALOPRAM 10 MG TABLET PO SCH (09:31)
[2019-07-30] MEDS: METOPROLOL SUCCINATE XL 25 MG TABLET PO SCH (09:31)
[2019-07-30] MEDS: DESITIN 4OZ/NYSTATIN 15 GRAM MIXTURE PASTE TOP SCH (10:05)
[2019-07-30] MEDS: MENTHOL/ZINC OXIDE OINT 71 GM JAR TOP SCH (10:05)
[2019-07-30] MEDS: ERTAPENEM 1,000 MG in SODIUM CHLORIDE 0.9% 100 ML IV SCH (10:07)
[2019-07-30 14:05] VITALS: BP 93/53
== END 2019-07-30 13:03 | DRG 853 ==
LOC: EDBD → EDUNIT# → N.ED 20:12 → SUATTDRO 07-17 00:26 → N.EDINP 07-17 00:26 → N.5E 07-17 00:43
PROVIDERS: ADMIT Hospitalist; ATTEND Family Medicine